=== PATIENT | female | born 1945 | race Caucasian/White ===

== ENCOUNTER → 2016-08-19 | Outpatient (CLI) | payer OTHER ==
[~2016-08-19] MED LIST: ACETAMINOPHEN PR; ASPIRIN81 M2 PO; ATIVAN PO; BAYER CHEWABLE81 MG PO; CARDIZEM60 M1 PO; CENTRUM SILVER PO; DILTIAZEM 24HR120 M1 PO; DILTIAZEM ER60 MG PO; HYDROCODONE/APA1 T16 PO; LISINOPRIL10 MG PO; LO-DOSE ASPIRIN81 M1 PO; NEXIUM PO; OMEPRAZOLE40 M1 PO; PRINIVIL10 MG PO; TYLENOL #4 PO; VICODIN PO; [UNRECOGNIZED DRUG - REMARK]
--- NOTE | ~2016-08-19 | US6 ---
[facility] A Service of [facility] RADIOLOGY TEXT RESULTS PATIENT: RAFAEL NAQVI LOCATION: [facility]US : 47 UNIT #: [id number] AGE: [address]: Jaron Snider MD SEX: F ORDER DR: [id number] [facility] [address] [place], [place] [address] [id number] O MR#: [id number] Acc #: [id number] NAME: RAFAEL NAQVI : 1945 SEX: F STUDY DATE/TIME: 08/19/2016 10:29 UNIT: [facility] ROOM: STUDY DESCRIPTION: US Abdominal Limited Attending Physician: Jaron Snider M.D. Referring Physician: Jaron Snider M.D. Ordering Physician: Jaron Snider M.D. Primary Care Physician: Tevin John M.D. MEDICAL IMAGING REPORT This report is preliminary unless electronic signature is present EXAM Right upper quadrant abdominal ultrasound INDICATIONS Epigastric abdominal pain and nausea for the past 2 weeks. Previous cholecystectomy. PROCEDURE Mandel-scale and Doppler imaging right upper quadrant of the abdomen COMPARISON 10/24/2015 FINDINGS Pancreas mostly obscured by bowel gas. Common duct measures 5 mm. Previous cholecystectomy. Right kidney measures 10.2 cm. No hydronephrosis. Liver measures 14.9 cm. No liver mass on submitted images. IMPRESSION 1. No previous cholecystectomy. No bile duct dilation. 2. Otherwise negative right upper quadrant ultrasound Dictated by... Jag Messina M.D. THIS IS AN ELECTRONICALLY VERIFIED REPORT Jag Messian M.D. at 08/20/2016 7:05 AM EED/shaunna TD: 08/19/2016 13:36 JOB #: [id number] [facility] A Service of [facility] RADIOLOGY TEXT RESULTS PATIENT: RAFAEL NAQVI LOCATION: [facility] : 46 UNIT #: [id number] AGE: [address]: Jraon Snider MD SEX: F ORDER DR: MEDICAL IMAGING REPORT Page 1 of 1 COPY
[2016-08-19 10:26] LABS: HEMATOCRIT 39.4 % (35.0-45.0); HEMOGLOBIN 12.7 gm/dL (12.0-16.0); MEAN CELL VOLUME 89.9 FL (83-96); MEAN CORPUSCULAR HEMOGLOBIN 28.9 PG (28-34); MEAN CORPUSCULAR HGB CONC 32.2 g/dL (30-36); MEAN PLATELET VOLUME 8.1 FL (6.5-11.5); RED BLOOD COUNT 4.38 X10e (3.90-5.30); RED CELL DISTRIBUTION WIDTH 13.8 % (11.0-15.5); WHITE BLOOD COUNT 8.6 X10e3 (4.0-10.5)
[2016-08-19 11:03] LABS: ALBUMIN SERUM 4.1 g/dL (3.5-5.0); BILIRUBIN,TOTAL 0.5 mg/dL (0.2-2.0); BUN/CREATININE RATIO 17.5; CALCIUM SERUM 9.3 mg/dL (8.4-10.2); CREATININE SERUM 0.8 mg/dL (0.6-1.4); GLOM FILT RATE Estimated 75.3 mL/min (>60); POTASSIUM 3.9 mmol/L (3.5-5.1); PROTEIN TOTAL SERUM 7.3 g/dL (6.0-8.3)
== END | disposition home or self-care (01) ==
LOC: CGUS 09:56
PROVIDERS: Internal Medicine
DX: R10.11 Right upper quadrant pain (principal)
CPT/HCPCS: 36415; 76705; 80053; 82150; 83690; 85027

== ENCOUNTER → 2016-10-15 | Day surgery (SDC) | payer OTHER ==
--- NOTE | ~2016-10-15 | OR ---
Unit #: [id number] #: [id number] Patient: RAFAEL NAQVI [id number] [address] [address] [id number] O MR#: [id number] NAME: RAFAEL NAQVI ROOM: Date of Procedure: 10/15/2016 Admission Date: 10/15/2016 Surgeon: Jaron Snider M.D. : 1945 Attending Physician: Jaron Snider M.D. Referring Physician: Jaron Snider M.D. Primary Care Physician: Tevin John M.D. OPERATIVE REPORT PROCEDURE PERFORMED Esophagogastroduodenoscopy with biopsy. INDICATIONS FOR PROCEDURE A 71-year-old female with chronic dysphagia, undergoing evaluation with upper endoscopy. MEDICATIONS Monitored anesthesia. POSTOPERATIVE FINDINGS 1. Esophageal ring, nonobstructing. 2. Hiatal hernia. 3. Mild gastritis, biopsies were taken. 4. Normal duodenum and distal duodenum. PLAN Continue PPI therapy. If biopsies are negative, CT scan for further evaluation of her pain. DESCRIPTION OF PROCEDURE The patient was explained of the procedure, risks, and benefits along with the risks and benefits of anesthesia. She was brought to the endoscopy room. Propofol anesthesia was given. Bite block was placed. The scope was passed down the mouth into esophagus, stomach, duodenum, and distal duodenum. Findings as described. Biopsies were taken. Gently I pulled the scope out of the patient's mouth. She tolerated it well. Dictated by... Rohan Ferro/avril TD: 10/15/2016 15:20 JOB #: [id number] CC: Rohan Ferro M.D. Unit #: [id number] #: [id number] Patient: RAFAEL NAQVI OPERATIVE REPORT Page 1 of 1 X Jaron Snider MD PROCEDURE OPERATIVE NOTE
== END | disposition home or self-care (01) ==
LOC: COPS 06:29
DX: K22.2 Esophageal obstruction (principal); K44.9 Diaphragmatic hernia without obstruction or gangrene; K29.50 Unspecified chronic gastritis without bleeding; I10 Essential (primary) hypertension; K21.9 Gastro-esophageal reflux disease without esophagitis; Z79.82 Long term (current) use of aspirin; Z79.899 Other long term (current) drug therapy; Z90.49 Acquired absence of other specified parts of digestive tract; Z98.890 Other specified postprocedural states
CPT/HCPCS: 88305; 88312